=== PATIENT | male | born 1965 | race African-American/Black ===

== ENCOUNTER → 2023-11-24 08:09 | Outpatient (REF) | payer OTHER, SELFPAY | LOC: HWRAD 08:09 | PROVIDERS: ATTENDING PHYSICIAN Registered Nurse | DX: I26.99 Other pulmonary embolism without acute cor pulmonale (principal) | CPT/HCPCS: 71275; Q9967 ==

== ENCOUNTER → 2023-12-07 08:53 | Outpatient (REF) | payer OTHER, SELFPAY | LOC: RAD 08:53 | PROVIDERS: ATTENDING PHYSICIAN Physician Assistant; FAMILY PHYSICIAN Registered Nurse | DX: I82.422 Acute embolism and thrombosis of left iliac vein (principal) | CPT/HCPCS: 93971; 93978 ==

== ENCOUNTER → 2024-07-03 09:29 | Outpatient (REF) | payer OTHER, SELFPAY | LOC: RAD 09:29 | PROVIDERS: ATTENDING PHYSICIAN Registered Nurse; FAMILY PHYSICIAN Registered Nurse | DX: I82.422 Acute embolism and thrombosis of left iliac vein (principal) | CPT/HCPCS: 93970; 93978 ==

== ENCOUNTER → 2024-08-27 09:45 | Outpatient (REF) | payer OTHER, SELFPAY | LOC: RAD 09:45 | PROVIDERS: ATTENDING PHYSICIAN Student in an Organized Health Care Education/Training Program; FAMILY PHYSICIAN Registered Nurse | DX: G47.33 Obstructive sleep apnea (adult) (pediatric) (principal); M10.9 Gout, unspecified; M1A.00X0 Idiopathic chronic gout, unspecified site, without tophus (tophi); M25.50 Pain in unspecified joint; M75.102 Unspecified rotator cuff tear or rupture of left shoulder, not specified as traumatic; Z51.81 Encounter for therapeutic drug level monitoring; Z79.01 Long term (current) use of anticoagulants; Z86.69 Personal history of other diseases of the nervous system and sense organs | CPT/HCPCS: 73120; 73630 ==

== ENCOUNTER 2025-06-17 06:17 | Day surgery (SDC) | payer OTHER, SELFPAY | END 2025-06-17 13:45 | disposition home or self-care (01) | LOC: GI 06:17 | PROVIDERS: ATTENDING PHYSICIAN Internal Medicine; FAMILY PHYSICIAN Registered Nurse | DX: Z12.11 Encounter for screening for malignant neoplasm of colon (principal); K64.8 Other hemorrhoids; K57.30 Diverticulosis of large intestine without perforation or abscess without bleeding | CPT/HCPCS: G0121 ==

== ENCOUNTER → 2025-07-08 08:18 | Outpatient (REF) | payer OTHER, SELFPAY | LOC: DHVS 08:18 | PROVIDERS: ATTENDING PHYSICIAN Registered Nurse; FAMILY PHYSICIAN Registered Nurse; OTHER PHYSICIAN Surgery Vascular Surgery | DX: I82.422 Acute embolism and thrombosis of left iliac vein (principal) | CPT/HCPCS: 93970; 93978 ==

== ENCOUNTER → 2025-08-05 14:51 | Outpatient (REF) | payer OTHER, SELFPAY | LOC: HWRAD 14:51 | PROVIDERS: ATTENDING PHYSICIAN Registered Nurse | DX: E78.2 Mixed hyperlipidemia (principal) | CPT/HCPCS: 75571 ==